=== PATIENT | male | born 1970 | race Caucasian/White ===

== ENCOUNTER 2023-05-07 08:25 | Outpatient (CLI) | payer BC ==
[2023-05-07 09:53] LABS: Hemoglobin 16.5 g/dL (13.5-17.5); Mean Corpuscular HGB CONC 33.8 g/dL (32.0-36.0); Mean Corpuscular Hemoglobin 31.9 pg (27.0-33.0); Mean Corpuscular Volume 94.2 fl (81.2-95.1); Red Blood Cell (RBC) Count 5.18 10x6/uL (4.32-5.72); White Blood Cell (WBC) Count 9.8 10x3/uL (3.5-10.5)
[2023-05-07 09:54] LABS: #Neutrophils 6.6 10x3/uL (1.5-8.4); %Basophils 0.5 % (0.0-2.0); %Eosinophils 2.2 % (0.0-6.0); %Lymphocytes 20.7 % (18.0-47.0); %Monocytes 8.7 % (0.0-10.0); %Neutrophils 67.2 % (40.0-75.0); Mean Platelet Volume 9.6 fl (7.4-10.4); Platelet Count 273 10x3/uL (130-400); RBC Distribution Width 13.1 % (11.5-14.5)
[2023-05-07 09:55] LABS: #Basophils 0.1 10x3/uL (0.0-0.2); #Eosinphils 0.2 10x3/uL (0.0-0.5); #Monocytes 0.9 10x3/uL (0.0-1.1)
[2023-05-07 10:53] LABS: ALT (SGPT) 40 U/L (8-55); AST (SGOT) 29 U/L (5-34); Albumin 4.8 g/dL (3.5-5.0); Alkaline Phosphatase 55 U/L (40-110); Anion Gap 19 mmol/L (10-20); BUN (Urea Nitrogen) 15 mg/dL (8.4-25.7); Bilirubin, Total 0.9 mg/dL (0.2-1.2); Calc. Creatinine Clearance 0 mL/min (70-130); Calcium 9.5 mg/dL (7.8-10.44); Carbon Dioxide 27 mmol/L (22-29); Chloride 98 mmol/L (98-107); Estimated GFR 102; Globulin 2.6 g/dL (2.4-3.5); Glucose 128 mg/dL (70-105); Potassium 4.6 mmol/L (3.5-5.1); Protein, Total 7.4 g/dL (6.0-8.3); Sodium 139 mmol/L (136-145)
== END 2023-05-07 08:26 | disposition home or self-care (01) ==
LOC: LABBT 08:25
PROVIDERS: ATTEND Surgery
DX: Z01.818 Encounter for other preprocedural examination (principal); K40.20 Bilateral inguinal hernia, without obstruction or gangrene, not specified as recurrent
CPT/HCPCS: 80053; 85025; 93005; 93010

== ENCOUNTER 2023-05-09 10:15 | Day surgery (SDC) | payer BC ==
[2023-05-07 08:53] VITALS: BMI 36.9
[2023-05-09] MEDS ORDERED: Fentanyl 250 MCG/5 ML VIAL ONE (14:23)
[2023-05-09] MEDS ORDERED: SUGAMMADEX SODIUM 200 MG/2 ML VIAL ONE (14:23)
[2023-05-09] MEDS ORDERED: Bupivacaine 0.25% HCL 30 ML VIAL ONE ×2 (14:28→15:09)
[2023-05-09] MEDS ORDERED: EPINEPHrine 1 MG/ML AMP ONE (14:28)
[2023-05-09] MEDS ORDERED: Sodium Chloride 0.9% 100 ML ONE (14:33)
[2023-05-09] MEDS ORDERED: CEFAZOLIN 2 GM VIAL ONE (14:33)
[2023-05-09] MEDS ORDERED: Ondansetron PF 4 MG/2 ML Vial ONE (14:48)
[2023-05-09] MEDS ORDERED: Dexamethasone 20 MG/5 ML VIAL ONE (14:48)
[2023-05-09] MEDS ORDERED: Lidocaine 1% PF 5 ML VIAL ONE (14:48)
[2023-05-09] MEDS ORDERED: Rocuronium Bromide 10 MG/ML (10ML VIAL) ONE (14:48)
[2023-05-09] MEDS ORDERED: Ketorolac Tromethamine 30 MG/ML VIAL ONE (14:48)
[2023-05-09] MEDS ORDERED: PROPOFOL 200 MG/20 ML VIAL ONE (14:48)
[2023-05-09] MEDS ORDERED: Meperidine HCl/PF 25 MG/ML VIAL ONE (16:21)
[2023-05-09] MEDS ORDERED: HYDROcodone/Acetaminophen 5/325 mg Tablet ONE ×2 (17:13→17:14)
== END 2023-05-09 18:36 | disposition home or self-care (01) ==
LOC: SDC 10:15
PROVIDERS: ATTEND Surgery
PROC: 0YU Anatomical Regions, Lower Extremities, Supplement (ICD-10-PCS; principal; 2023-05-09)
DX: K40.20 Bilateral inguinal hernia, without obstruction or gangrene, not specified as recurrent (principal); E66.01 Morbid (severe) obesity due to excess calories; K40.90 Unilateral inguinal hernia, without obstruction or gangrene, not specified as recurrent; I10 Essential (primary) hypertension; E78.5 Hyperlipidemia, unspecified; E55.9 Vitamin D deficiency, unspecified; Z90.89 Acquired absence of other organs; Z68.36 Body mass index [BMI] 36.0-36.9, adult; Z79.82 Long term (current) use of aspirin; Z79.899 Other long term (current) drug therapy
CPT/HCPCS: C1781; J0171; J1100; J1885; J2175; J2405; J2704; J3010; J3490; S0020